=== PATIENT | female | born 1975 | race Caucasian/White ===

== ENCOUNTER 2020-01-20 15:19 | Emergency (ER) | payer BC ==
--- NOTE | 2020-01-20 15:41 | EDM.PDOC ---
ED HPI GENERAL MEDICAL PROBLEM - General Chief Complaint: Headache Stated Complaint: BLOOD PRESSURE;NECK PAIN;LIGHTHEADEDNESS Time Seen by Provider: 01/20/20 15:24 Source of Information: Reports: Patient History Limitations: Reports: No Limitations - History of Present Illness INITIAL COMMENTS - FREE TEXT/NARRATIVE: HISTORY AND PHYSICAL: History of present illness: Patient is a 44-year-old female who presents to the emergency room with complaints of headache and high blood pressure. Patient states that since August she has had borderline high blood pressure in which she was supposed to follow- up with Dr. Acuna; since COVID hit and she was unable to get an appointment and failed to follow up. She called [facility] doctor yesterday who called her in lisinopril/HCTZ, she took her first dose today at 11. She does have a generalized headache, which is more bothersome in base of skull. She describes this as a squeezing pressure. When she gets headaches it is typically in the frontal aspect of the head, this pain is different. She states she feels like she is having to focus her eyes and has some slight blurred edging at times. Denies any head injury, trauma or falls. She has also noted tremors to bilateral hands. She states she has had a tremor before but feels like this is "way worse" than usual. States she does feel slightly lightheaded but denies any dizziness or vertigo. Patient denies any fever, chills, syncope or near syncope. Denies any chest pain, back pain, shortness of breath or cough. Denies any abdominal pain, nausea, vomiting, diarrhea, constipation or dysuria. Has not noted any blood in urine or stool. Patient has been eating and drinking appropriately. Review of systems: As per history of present illness and below otherwise all systems reviewed and negative. Past medical history: As per history of present illness and as reviewed below otherwise noncontributory. Surgical history: As per history of present illness and as reviewed below otherwise noncontributory. Social history: See social history for further information Family history: As per history of present illness and as reviewed below otherwise noncontributory. Physical exam: General: Well-developed and well-nourished 44-year-old female. Alert and oriented. Nontoxic-appearing and in no acute distress. HEENT: Atraumatic, normocephalic, pupils equal and reactive bilaterally, negative for conjunctival pallor or scleral icterus, mucous membranes moist, TMs normal bilaterally, throat clear, neck supple, nontender, trachea midline. No drooling or trismus noted. No meningeal signs. No hot potato voice noted. Lungs: Clear to auscultation, breath sounds equal bilaterally, chest nontender. Heart: S1S2, regular rate and rhythm without overt murmur Abdomen: Soft, nondistended, nontender. Negative for masses or costovertebral tenderness. Skin: Intact, warm, dry. No lesions or rashes noted. C-spine/Back: No pinpoint vertebral tenderness upon palpation. No crepitus, step-offs or obvious deformities. Patient is ambulatory into the emergency room without difficulty or deficit. Able to rock back on heels and walk on toes. Denies any urinary or fecal incontinence. Denies any numbness, tingling or saddle paresthesia. No concerns of serious infection, fracture or cord compression, or cauda equina syndrome. Extremities: Atraumatic, moves all extremities per self without difficulty or deficits, negative for cords or calf pain. Neurovascular unremarkable. Neuro: Awake, alert, oriented. See NIH note. Notes: GCS 15. Patient's headache is not any better after medication. Head CT shows focal density within the right basal ganglia which radiologist believes is prominent perivascular space. No acute intracranial abnormality. Patient cannot have a CTA of her head she has anaphylaxis reaction with IV contrast. I did speak with Dr. Thompson, who evaluated the patient. The patient now elicits information stating that her son had reported she was talking funny, states she could have had some slurred speech. This information was not provided upon her triage or my physical exam. Please see his note for details. STROKE alert was prompted. Upon reevaluation and performance of NIH, NIH 5 -minimal left-sided facial droop, left upper and lower extremity drift. She does not meet criteria for further intervention/thrombolytics. We do not have capability of doing an MRI over the weekend. I did call Dr. Winston, ER physician at [facility] in [place], agreeable to accepting this patient. Patient will go via ground. Her vital signs remained stable. Diagnostics: CBC, CMP, UA, Troponin, Head CT Therapeutics: IV fluids, Toradol Impression: Ischemic stroke Plan: To [place] via ground EMS Definitive disposition and diagnosis as appropriate pending reevaluation and review of above. Headache Pain Score (Numeric/FACES): 4 - Related Data Allergies Allergy/AdvReac Type Severity Reaction Status Date / Time Penicillins Allergy Hives Verified 01/20/20 15:48 IV contrast Allergy Anaphylactic Uncoded 01/20/20 15:48 Shock Home Meds: Home Meds Albuterol [Ventolin HFA] 1 puff .XX ASDIRECTED 01/20/20 [History] Lisinopril/Hydrochlorothiazide [Lisinopril-HCTZ 10-12.5 MG] 1 tab PO DAILY 01/20/20 [History] ED ROS GENERAL - Review of Systems Review Of Systems: Comprehensive ROS is negative, except as noted in HPI. - Physical Exam Exam: See Below (See dictation) Course - Vital Signs Last Recorded V/S: Last Vital Signs Temp 96.2 F L 01/20/20 18:21 Pulse 62 01/20/20 18:21 Resp 18 01/20/20 18:21 BP 139/82 01/20/20 18:21 Pulse Ox 97 01/20/20 18:21 - Orders/Labs/Meds Orders: Active Orders 24 hr Category Date Time Status EKG Documentation Completion [RC] STAT Care 01/20/20 16:00 Active Swallow Screen [Nursing Bedside Swallow Screen] [RC] Care 01/20/20 18:07 Active ASDIRECTED TROPONIN I [CHEM] Stat Lab 01/20/20 16:10 Received Labs: Laboratory Tests 01/20/20 01/20/20 01/20/20 Range/Units 16:10 16:10 17:28 WBC 6.73 (4.0-11.0) K/uL RBC 4.36 (4.30-5.90) M/uL Hgb 12.8 (12.0-16.0) g/dL Hct 38.6 (36.0-46.0) % MCV 88.5 (80.0-98.0) fL MCH 29.4 (27.0-32.0) pg MCHC 33.2 (31.0-37.0) g/dL RDW Std Deviation 44.7 (28.0-62.0) fl RDW Coeff of Leah 14 (11.0-15.0) % Plt Count 231 (150-400) K/uL MPV 12.10 H (7.40-12.00) fL Neut % (Auto) 57.8 (48.0-80.0) % Lymph % (Auto) 29.6 (16.0-40.0) % [place] % (Auto) 9.7 (0.0-15.0) % Eos % (Auto) 2.5 (0.0-7.0) % Baso % (Auto) 0.4 (0.0-1.5) % Neut # (Auto) 3.9 (1.4-5.7) K/uL Lymph # (Auto) 2.0 (0.6-2.4) K/uL [place] # (Auto) 0.7 (0.0-0.8) K/uL Eos # (Auto) 0.2 (0.0-0.7) K/uL Baso # (Auto) 0.0 (0.0-0.1) K/uL Nucleated RBC % 0.0 /100WBC Nucleated RBCs # 0 K/uL Sodium 138 (136-145) mmol/L Potassium 3.6 (3.5-5.1) mmol/L Chloride 102 (98-107) mmol/L Carbon Dioxide 26.7 (21.0-32.0) mmol/L BUN 8 (7.0-18.0) mg/dL Creatinine 0.9 (0.6-1.0) mg/dL Est Cr Clr Drug Dosing 71.78 mL/min Estimated GFR (MDRD) > 60.0 ml/min Glucose 110 H (74-106) mg/dL Calcium 8.3 L (8.5-10.1) mg/dL Total Bilirubin 0.3 (0.2-1.0) mg/dL AST 62 H (15-37) IU/L ALT 119 H (14-63) IU/L Alkaline Phosphatase 134 H (46-116) U/L Total Protein 8.2 (6.4-8.2) g/dL Albumin 4.0 (3.4-5.0) g/dL Globulin 4.2 H (2.6-4.0) g/dL Albumin/Globulin Ratio 1.0 (0.9-1.6) Urine Color YELLOW Urine Appearance CLEAR Urine pH 6.0 (5.0-8.0) Ur Specific Gibson 1.020 (1.001-1.035) Urine Protein NEGATIVE (NEGATIVE) mg/dL Urine Glucose (UA) NEGATIVE (NEGATIVE) mg/dL Urine Ketones NEGATIVE (NEGATIVE) mg/dL Urine Occult Blood NEGATIVE (NEGATIVE) Urine Nitrite NEGATIVE (NEGATIVE) Urine Bilirubin NEGATIVE (NEGATIVE) Urine Urobilinogen 0.2 (<2.0) EU/dL Ur Leukocyte Esterase NEGATIVE (NEGATIVE) Meds: Medications Discontinued Medications Generic Name Dose Route Start Last Admin Trade Name Freisaiah PRN Reason Stop Dose Admin Aspirin 324 mg 01/20/20 18:06 01/20/20 18:16 Aspirin PO 01/20/20 18:07 324 mg ONETIME ONE Administration Clonidine HCl 0.1 mg 01/20/20 15:49 01/20/20 16:43 Catapres PO 01/20/20 15:50 Not Given ONETIME ONE Sodium Chloride 1,000 mls @ 999 mls/hr 01/20/20 15:48 01/20/20 16:11 Normal Saline IV 01/20/20 16:48 999 mls/hr STAT ONE Administration Ketorolac Tromethamine 30 mg 01/20/20 15:48 01/20/20 16:11 Toradol IVPUSH 01/20/20 15:49 30 mg ONETIME ONE Administration Departure - Departure Time of Disposition: 19:23 Disposition: DC/Tfer to Acute Hospital 02 Clinical Impression: Ischemic stroke - Discharge Information Referrals: Eusebio Acuna DO [Primary Care Provider] - Forms: ED Department Discharge Sepsis Event Note (ED) - Focused Exam Vital Signs: Vital Signs Temp Pulse Resp BP Pulse Ox 01/20/20 18:21 96.2 F L 62 18 139/82 97 01/20/20 17:27 72 17 121/81 98 01/20/20 15:42 96.3 F L 80 18 174/93 H 95 - My Orders Last 24 Hours: My Active Orders 01/20/20 16:00 EKG Documentation Completion [RC] STAT 01/20/20 16:10 TROPONIN I [CHEM] Stat 01/20/20 18:07 Swallow Screen [Nursing Bedside Swallow Screen] [RC] ASDIRECTED - Assessment/Plan Last 24 Hours: My Active Orders 01/20/20 16:00 EKG Documentation Completion [RC] STAT 01/20/20 16:10 TROPONIN I [CHEM] Stat 01/20/20 18:07 Swallow Screen [Nursing Bedside Swallow Screen] [RC] ASDIRECTED
[2020-01-20] MEDS ORDERED: Sodium Chloride 0.9% 1,000 ML IV ONE (15:48)
[2020-01-20] MEDS ORDERED: Ketorolac 30 MG/ML SDV IVPUSH ONE (15:48)
[2020-01-20] MEDS: cloNIDine 0.1 MG Tab PO ONE ×2 (16:11→16:43)
[2020-01-20 16:44] LABS: BLOOD UREA NITROGEN,BUN 8 mg/dL (7.0-18.0); CARBON DIOXIDE,CO2 26.7 mmol/L (21.0-32.0); CHLORIDE,CL 102 mmol/L (98-107); GLUCOSE RANDOM 110 mg/dL (74-106); POTASSIUM,K 3.6 mmol/L (3.5-5.1); SODIUM,NA 138 mmol/L (136-145)
--- NOTE | 2020-01-20 17:23 | CT ---
Head CT Technique: Multiple axial sections through the brain were obtained. Intravenous contrast was not utilized. Comparison: No prior intracranial imaging is available. Findings: Ventricles along with basal cisterns and sulci over convexities are within normal limits for the patient's age. Focal low density abnormality is noted within the right basal ganglia. This is most likely due to prominent perivascular space. No other abnormal parenchymal densities are seen. No evidence of intracranial hemorrhage. No midline shift or mass-effect is seen. Mild mucosal thickening is seen circumferentially within both maxillary sinuses. Mild mucosal thickening is seen within the ethmoid sinuses. Previous sinus surgery is noted. No acute calvarial abnormality is appreciated. Impression: 1. Focal density within the right basal ganglia which I believe represents a prominent perivascular space. 2. No acute intracranial abnormality is suspected. 3. Chronic sinus findings as noted above. Diagnostic code #3 This report was dictated in MDT
[2020-01-20] MEDS ORDERED: Aspirin 81 MG Tab.Chew PO ONE (18:06)
--- NOTE | 2020-01-20 19:27 | PCM.SN.2 ---
- Free Text/Narrative Note: Patient was presented to be by the mid-level provider. I have personally independently seen and evaluated the patient at bedside and, if available, have spoken with the with the family. I agree with the history, physical, medical decision making, and plan of treatment as documented by the mid-level provider. I have performed the medical decision making for this patient, including assessing the results of all diagnostic testing and I have instructed the mid- level provider to document the results. 43-year-old female with no past medical history presenting with a headache. Reports a posterior midline headache/upper neck pain since last night. Reports the onset of left-sided facial numbness around noon. Around the same time, her son told her that she was not talking normally. When I evaluated the patient at the bedside, I noted very slight left-sided facial droop at the corner of the lip along with left nasolabial fold flattening. Patient does have left leg drift and also has bilateral impairment with [id number] testing. She also complains of subjective numbness over the left maxilla. Findings are concerning for stroke. Symptoms started approximately 6 hours prior to this, so she is not a TPA candidate. Noncontrast head CT is negative. Unfortunately, she has a history of anaphylaxis to IV contrast material. We are unable to obtain an MRI after hours at our facility. Low suspicion for large vessel occlusion given lack of visual symptoms, aphasia, or hemineglect so I do not feel that emergent transfer for vascular imaging would be of much utility at this point. I reviewed the twelve-lead EKG and does not show atrial fibrillation or any significant arrhythmia or ischemia. Vital signs reviewed. Nursing notes reviewed. Constitutional: Awake, alert, non-distressed. Head: Normocephalic, atraumatic. Eyes: EOMI, conjunctiva normal, no discharge, no scleral icterus. Ears, Nose, Throat: External ears and nose normal, moist oral mucosa. Cardiovascular: 2+ radial pulse, capillary refill less than 2 seconds. Pulmonary: normal work of breathing, no accessory muscle use. Abdomen/GI: Soft, nontender, nondistended, no guarding or rigidity, no masses. Musculoskeletal: No deformities. Integumentary: Appropriate color for ethnicity, warm, dry, no pallor or jaundice, no rash. Neurologic: Awake, alert, and oriented x3. Subjective numbness to left maxilla. Left-sided facial droop present, no dysarthria. No pronator drift. Bilateral intention tremor in the upper extremities. Left leg drift present. Sensation intact to light touch x4. Psychiatric: Appropriate mood and affect, normal thought process. Patient will need to be transferred to a higher level of care for stroke liborio luation including MR imaging and MRAs. She will be given full dose aspirin. We will transfer to [facility] in [place]. VALERI Tamayo spoke with the accepting ED physician and we will transfer the patient by EMS. Diagnosis: ischemic cerebrovascular accident (CVA).
== END 2020-01-20 19:28 ==
LOC: MW.ED 15:19
DX: I63.9 Cerebral infarction, unspecified (principal); Z91.041 Radiographic dye allergy status; Z88.0 Allergy status to penicillin; Z79.899 Other long term (current) drug therapy
CPT/HCPCS: 36415; 70450; 80053; 81003; 84484; 85025; 93005; 96374; 99285; A9270; J1885; J7030; 99284